=== PATIENT | male | born 2000 | race Caucasian/White ===

== ENCOUNTER 2022-03-06 04:43 | Emergency (ER) | payer SELFPAY ==
[~2022-03-06] VITALS: Ht 180.3 cm; Wt 84.8 kg
[2022-03-06 04:43] VITALS: BP 129/81
--- NOTE | 2022-03-06 04:43 | NUR ---
PT BIB [facility], PREBOOK. TAKEN TO CHAIR
[2022-03-06 04:50] VITALS: BP 129/81
--- NOTE | 2022-03-06 05:50 | NUR ---
Patient discharged with v/s stable. Written and verbal after care instructions given and explained. Patient verbalized understanding. Police with in custody. All questions addressed prior to discharge. Advised to follow up with [facility]D.
== END 2022-03-06 05:50 ==
LOC: MED 04:43
DX: J45.909 Unspecified asthma, uncomplicated
CPT/HCPCS: 99283